=== PATIENT | male | born 1995 | race Caucasian/White ===

== ENCOUNTER 2020-09-11 21:33 | Emergency (ER) | payer OTHER ==
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
== END 2020-09-11 22:38 | disposition home or self-care (01) ==
LOC: JP.ED 21:33
DX: T23.141A Burn of first degree of multiple right fingers (nail), including thumb, initial encounter (principal); W86.1XXA Exposure to industrial wiring, appliances and electrical machinery, initial encounter
CPT/HCPCS: 99282; 99283